=== PATIENT | female | born 1985 | race Caucasian/White ===

== ENCOUNTER 2017-12-25 19:04 | Emergency (ER) | payer BC ==
[~2017-12-25] VITALS: Ht 170.2 cm; Wt 98.0 kg
[2017-12-25 19:09] VITALS: Ht 170.2 cm; Wt 98.0 kg
[2017-12-25 20:26] LABS: PLATELET COUNT 281 x10^3mcL (130-400)
[2017-12-25 20:34] LABS: CALCIUM 8.4 mg/dL (8.5-10.1); CHLORIDE SERUM 105 mmol/L (98-107); CREATININE SERUM 0.9 mg/dL (0.6-1.0); GFR1 > 60 mL/min; GLUCOSE SERUM 93 mg/dL (74-106); POTASSIUM SERUM 3.8 mmol/L (3.5-5.1); RED CELL DISTRIBUTION WIDTH 16.7 % (11.5-14.5); SODIUM SERUM 142 mmol/L (136-145)
[2017-12-25 20:38] LABS: ALBUMIN 3.7 g/dL (3.4-5.0); ALKALINE PHOSPHATASE 70 U/L (46-116); ALT/SGPT 17 U/L (14-59); AST/SGOT 10 U/L (15-37); BILIRUBIN TOTAL 0.4 mg/dL (0.20-1.00); LIPASE 260 IU/L (73-393); TOTAL PROTEIN, SERUM 7.1 g/dL (6.4-8.2)
[2017-12-25 21:58] VITALS: BP 117/64
== END 2017-12-25 21:58 | disposition home or self-care (01) ==
LOC: ED 19:04
PROVIDERS: Emergency Medicine
DX: R10.13 Epigastric pain (principal); R07.9 Chest pain, unspecified; R11.0 Nausea; J45.909 Unspecified asthma, uncomplicated
CPT/HCPCS: 83880; J1200; J1885; J2405; J3010; Q0092

== ENCOUNTER 2018-02-07 19:42 | Inpatient (IN) | payer BC ==
[~2018-02-07] VITALS: Ht 170.2 cm; Wt 97.5 kg
[2018-02-07 23:35] LABS: microscopic required? NO
[2018-02-07 23:39] LABS: urine erythrocyte NEGATIVE (NEGATIVE)
[2018-02-07 23:47] LABS: BASOPHIL % 0.6 % (0-2); PLATELET COUNT 248 x10^3mcL (130-400)
[2018-02-07 23:57] LABS: CALCIUM 8.9 mg/dL (8.5-10.1); CARBON DIOXIDE 25.9 mmol/L (21-32); CHLORIDE SERUM 104 mmol/L (98-107); CREATININE SERUM 0.8 mg/dL (0.6-1.0); GFR1 > 60 mL/min; GLUCOSE SERUM 98 mg/dL (74-106); POTASSIUM SERUM 3.6 mmol/L (3.5-5.1); SODIUM SERUM 137 mmol/L (136-145)
[2018-02-08 00:07] LABS: ALBUMIN 4.1 g/dL (3.4-5.0); ALKALINE PHOSPHATASE 81 U/L (46-116); ALT/SGPT 28 U/L (14-59); AMYLASE 43 U/L (25-115); AST/SGOT 22 U/L (15-37); BILIRUBIN TOTAL 0.9 mg/dL (0.20-1.00); LIPASE 184 IU/L (73-393); TOTAL PROTEIN, SERUM 8.1 g/dL (6.4-8.2)
[2018-02-08 04:12] LABS: AMPHETAMINE QUAL UR POSITIVE (NEG <=1000)
[2018-02-08 04:57] VITALS: BP 119/77
[2018-02-08 06:02] VITALS: BP 108/63
[2018-02-08 06:21] LABS: MAGNESIUM 2.1 mg/dL (1.8-2.4); PHOSPHOROUS 4.3 mg/dL (2.5-4.9)
[2018-02-08 06:33] LABS: FREE T4 0.96 ng/dL (0.76-1.46); FREE THYROXINE INDEX 2.6 ug/dL (1.4-4.5); T4(THYROXINE) 8.7 ug/dL (4.7-13.3)
[2018-02-08 06:34] LABS: CHOLESTEROL/HDL RATIO 3.5
[2018-02-08 06:35] LABS: CALCIUM 8.1 mg/dL (8.5-10.1); CARBON DIOXIDE 24.8 mmol/L (21-32); CHLORIDE SERUM 106 mmol/L (98-107); CREATININE SERUM 0.8 mg/dL (0.6-1.0); GFR1 > 60 mL/min; GLUCOSE SERUM 89 mg/dL (74-106); POTASSIUM SERUM 3.7 mmol/L (3.5-5.1); SODIUM SERUM 139 mmol/L (136-145)
[2018-02-08 06:37] LABS: BASOPHIL % 0.6 % (0-2); PLATELET COUNT 200 x10^3mcL (130-400)
[2018-02-08 06:44] LABS: T3 TOTAL 1.26 ng/mL
[2018-02-08 06:53] LABS: RED CELL DISTRIBUTION WIDTH 17.3 % (11.5-14.5)
[2018-02-08 08:10] LABS: ovalocyte/elliptocyte 1+; rbc morphology (normal/abnorm) ABNORMAL (NORMAL)
[2018-02-08 09:26] VITALS: BP 105/57
[2018-02-08 10:14] VITALS: Ht 170.2 cm; Wt 97.5 kg
[2018-02-08 13:04] VITALS: BP 105/61
[2018-02-08 21:31] VITALS: BP 112/70
[2018-02-09 06:14] VITALS: BP 101/63
[2018-02-09 06:23] LABS: BASOPHIL % 0.5 % (0-2); PLATELET COUNT 193 x10^3mcL (130-400)
[2018-02-09 06:33] LABS: CALCIUM 8.1 mg/dL (8.5-10.1); CARBON DIOXIDE 23.8 mmol/L (21-32); CHLORIDE SERUM 112 mmol/L (98-107); CREATININE SERUM 0.7 mg/dL (0.6-1.0); GFR1 > 60 mL/min; GLUCOSE SERUM 94 mg/dL (74-106); MAGNESIUM 1.7 mg/dL (1.8-2.4); PHOSPHOROUS 4.1 mg/dL (2.5-4.9); POTASSIUM SERUM 4.1 mmol/L (3.5-5.1); SODIUM SERUM 145 mmol/L (136-145)
[2018-02-09 06:54] LABS: RED CELL DISTRIBUTION WIDTH 16.7 % (11.5-14.5)
[2018-02-09 10:00] VITALS: BP 124/87
[2018-02-09 12:47] VITALS: BP 110/78
[2018-02-09 21:00] VITALS: BP 117/73
[2018-02-10 05:42] VITALS: BP 114/77
[2018-02-10 06:59] LABS: CALCIUM 8.3 mg/dL (8.5-10.1); CHLORIDE SERUM 108 mmol/L (98-107); CREATININE SERUM 0.7 mg/dL (0.6-1.0); GFR1 > 60 mL/min; GLUCOSE SERUM 87 mg/dL (74-106); MAGNESIUM 1.8 mg/dL (1.8-2.4); PHOSPHOROUS 4.3 mg/dL (2.5-4.9); SODIUM SERUM 141 mmol/L (136-145)
[2018-02-10 07:18] LABS: BASOPHIL % 0.5 % (0-2); PLATELET COUNT 209 x10^3mcL (130-400)
[2018-02-10 07:19] LABS: rbc morphology (normal/abnorm) ABNORMAL (NORMAL)
[2018-02-10 10:11] VITALS: BP 123/74
[2018-02-10 12:41] VITALS: BP 114/77
[2018-02-10] MEDS ORDERED: MEDROXYPROGESTE10 MG PO (13:43)
== END 2018-02-10 14:15 | disposition home or self-care (01) | DRG 761 ==
LOC: ED 19:42 → DU 02-08 03:07
PROVIDERS: Emergency Medicine; Family Medicine Sports Medicine
DX: N93.8 Other specified abnormal uterine and vaginal bleeding (principal); J45.909 Unspecified asthma, uncomplicated; N91.2 Amenorrhea, unspecified; F41.1 Generalized anxiety disorder; Z79.899 Other long term (current) drug therapy; F17.210 Nicotine dependence, cigarettes, uncomplicated; E66.9 Obesity, unspecified; E06.3 Autoimmune thyroiditis; D50.9 Iron deficiency anemia, unspecified; G89.29 Other chronic pain; M54.5 Low back pain; K76.0 Fatty (change of) liver, not elsewhere classified; E83.42 Hypomagnesemia; N83.202 Unspecified ovarian cyst, left side; Z68.33 Body mass index [BMI] 33.0-33.9, adult; E87.8 Other disorders of electrolyte and fluid balance, not elsewhere classified; E83.51 Hypocalcemia; E02 Subclinical iodine-deficiency hypothyroidism
CPT/HCPCS: 83880; 84439; 87046; 87046-59; J1200; J1885; J2405; J2916; J3010; J3475; J7030; Q0092

== ENCOUNTER 2020-07-21 18:17 | Emergency (ER) | payer OTHER ==
[~2020-07-21] VITALS: Ht 170.2 cm; Wt 80.7 kg
[~2020-07-21 18:17] MED LIST: MEDROXYPROGESTE10 MG PO
[2020-07-21 18:35] VITALS: Ht 170.2 cm; Wt 80.7 kg
[2020-07-21 19:39] LABS: BASOPHIL % 0.4 % (0-2); PLATELET COUNT 227 x10^3mcL (130-400); RED CELL DISTRIBUTION WIDTH 14.4 % (11.5-14.5)
[2020-07-21 19:52] LABS: CALCIUM 8.7 mg/dL (8.5-10.1); CARBON DIOXIDE 29.6 mmol/L (21-32); CHLORIDE SERUM 101 mmol/L (98-107); CREATININE SERUM 0.8 mg/dL (0.6-1.0); GFR1 > 60 mL/min; GLUCOSE SERUM 98 mg/dL (74-106); POTASSIUM SERUM 3.7 mmol/L (3.5-5.1); SODIUM SERUM 138 mmol/L (136-145)
[2020-07-21 19:57] LABS: ALBUMIN 3.5 g/dL (3.4-5.0); ALKALINE PHOSPHATASE 72 U/L (46-116); ALT/SGPT 15 U/L (14-59); AST/SGOT 11 U/L (15-37); BILIRUBIN TOTAL 0.4 mg/dL (0.20-1.00); TOTAL PROTEIN, SERUM 6.9 g/dL (6.4-8.2)
[2020-07-21 20:55] LABS: UA SPECIFIC GRAVITY 1.025 (1.005-1.035); microscopic required? YES; urine erythrocyte 3+ (NEGATIVE)
[2020-07-21 22:46] VITALS: BP 110/71
== END 2020-07-21 22:30 | disposition home or self-care (01) ==
LOC: ED 18:17
PROVIDERS: Emergency Medicine
DX: D25.9 Leiomyoma of uterus, unspecified (principal); N83.201 Unspecified ovarian cyst, right side; A59.01 Trichomonal vulvovaginitis; F17.210 Nicotine dependence, cigarettes, uncomplicated; J45.909 Unspecified asthma, uncomplicated; Z71.6 Tobacco abuse counseling; Z86.2 Personal history of diseases of the blood and blood-forming organs and certain disorders involving the immune mechanism
CPT/HCPCS: 87491; 87591; 99406; J0696; J1885; J7060; Q0092